=== PATIENT | male | born 1985 | race Caucasian/White ===

== ENCOUNTER 2025-03-16 14:52 | Emergency (ER) | payer MEDICAID, OTHER ==
[~2025-03-16] VITALS: Ht 177.8 cm; Wt 80.5 kg
[~2025-03-16 14:52] MED LIST: OMEP40CA21 PO
[2025-03-16 15:09] VITALS: BP 124/76; PULSE 71; RESP 18; TEMP 98.5; O2SAT 99
[2025-03-16] MEDS: LIDOcaine 1% W/epiNEPHrine 1:100,000 20ml vial IJ ONE (16:06)
--- NOTE | 2025-03-16 16:54 | Physician Documentation ---
History of Present Illness ~ Chief Complaint: Laceration Stated Complaint: HAND LAC WC Time Seen by MD: 15:17 Source: patient Mode of Arrival: POV Exam Limitations: no limitations HPI 39-year-old male with laceration to left dorsal aspect of hand caused by grinding wheel. Patient up-to-date on tetanus injury happened at work Medication Reconciliation Allergies: Coded Allergies: No Known Allergies (Unverified , 08/28/15) Scheduled Omeprazole (Prilosec), 1 CAP PO BID, (Reported) Sulfamethoxazole/Trimethoprim (Bactrim Ds Tablet), 1 TAB PO Q12H Past Medical History Past Medical History: No Pertinent History Review of Systems All Other Systems at this time: Reviewed and Negative Integumentary: Reports: no symptoms reported Physical Exam Vital Signs: RN Vital Signs have been reviewed: Yes, Temperature: 98.5, Source: Temporal, Heart Rate: 71, Respiratory Rate: 18, BP: 124/76, Pulse Oximetry: 99, Weight: 80.450 Oxygen Flow Rate: 0 General Appearance: alert, WD/WN, no apparent distress Cardiovascular: regular rate, rhythm, no gallop Respiratory: lungs clear, normal breath sounds, no respiratory distress Skin 5 cm partial-thickness laceration bleeding controlled tenderness noted about functional to the dorsal aspect near MCP joint of the 2nd finger CMS intact left hand Procedures Laceration/Wound Repair Laceration : Location: Left dorsal hand near 2nd finger MCP Length (cm): 5 Anesthesia: Lidocaine Volume Anesthetic (mls): 5 Prep: betadine, irrigated by nurse, irrigated by physician Irrigated w/ Saline (mls): 500 Debrided: minimal Undermining: none Margins: flaps aligned Foreign Body: not identified Repaired: skin Wound Repaired With: sutures Suture Size/Type: 4-0, prolene Number of Superficial Sutures: 5 Layer Closure?: No Splint Applied?: No Tolerated Procedure Well?: yes, no complications Progress Results/Orders Results/Orders Vital Signs 03/16/25 15:09 Temp 98.5 Pulse 71 Resp 18 B/P (MAP) 124/76 Pulse Ox 99 O2 Flow Rate 0 Medical Decision Making Findings Laceration by grinding wheel x-ray to evaluate for bone involvement although none was noted tendon can be seen the finger movement flexion-extension otherwise normal sensation and circulation intact Departure Time of Disposition: 16:54 Disposition: 01 HOME / SELF CARE / HOMELESS Impression: Primary Impression: Laceration Condition: Stable Discharge Instructions: Laceration Care, Adult, [id number] Additional Instructions: Sutures to be removed in 10 days. Leave bandage on for 24 hours men sutures may remain open to air. Monitor for signs of infection. Take antibiotics as prescribed Departure Forms: Excuse form Work or School Excused From: Work Excuse beginning now through the following date: Mar 17, 2025 Referrals: NO PRIMARY CARE PROVIDER (PCP) Prescriptions Sulfamethoxazole/Trimethoprim (Bactrim Ds Tablet) 800 Mg-160 Mg Tablet 1 TAB PO Q12H for 7 Days, #14 TAB Prov: HEATHER HOBSON NP 03/16/25 Education Educated: Patient, Family Educated regarding: diagnosis, treatment, need for follow up Signature Scribe Signature: No scribe Attestation: The note accurately reflects work and decisions made by me.Heather BARAJAS 03/16/25 16:56 HEATHER HOBSON NP Mar 16, 2025 16:54 WALESKA BANGURA MD Mar 17, 2025 09:55
[2025-03-16] MEDS ORDERED: SULF1TAB49 PO (16:55)
--- NOTE | 2025-03-16 17:20 | RADIOLOGY REPORT ---
Indication: [employer] Laceration injury LEFT HAND Technique: 3 views of the left hand Comparison: None FINDINGS/IMPRESSION: No radiographic evidence for acute fracture or dislocation. No significant soft tissue edema. No rad iopaque foreign body. Mild degenerative changes of the left hand.
== END 2025-03-16 17:05 | disposition home or self-care (01) ==
LOC: ER 14:53
DX: S61.412A Laceration without foreign body of left hand, initial encounter (principal); Z79.899 Other long term (current) drug therapy; W31.89XA Contact with other specified machinery, initial encounter; Y93.89 Activity, other specified; Y92.89 Other specified places as the place of occurrence of the external cause; Y99.8 Other external cause status
CPT/HCPCS: 12002; 73130; 99283; J7030; A6449